=== PATIENT | male | born 1975 | race Caucasian/White ===

== ENCOUNTER 2022-06-12 10:55 | Emergency (ER) | payer OTHER, BC, SELFPAY ==
[2022-06-12 11:40] VITALS: BP 150/89; PULSE 76; RESP 16; TEMP 36.5; O2SAT 99; BMI 30.5
[2022-06-12 13:51] VITALS: BP 130/91; PULSE 68; RESP 16; O2SAT 97
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
== END 2022-06-12 14:44 | disposition home or self-care (01) ==
PROVIDERS: Emergency Provider Internal Medicine
DX: S16.1XXA Strain of muscle, fascia and tendon at neck level, initial encounter (principal); V43.52XA Car driver injured in collision with other type car in traffic accident, initial encounter; R51.9 Headache, unspecified; Y93.9 Activity, unspecified; Y92.414 Local residential or business street as the place of occurrence of the external cause; Y99.9 Unspecified external cause status
CPT/HCPCS: 99283; 99284